=== PATIENT | male | born 2000 | race African-American/Black ===

== ENCOUNTER 2022-07-09 12:52 | Emergency (ER) | payer SELFPAY ==
[~2022-07-09] VITALS: Ht 182.9 cm; Wt 114.8 kg
[2022-07-09] MEDS ORDERED: FAMOTIDINE 20 MG/2 ML VIAL IV STA (13:10)
[2022-07-09] MEDS ORDERED: ONDANSETRON HCL INJ 2MG/ML 2ML 2 MG/ML VIAL IV STA (13:10)
[2022-07-09] MEDS ORDERED: SODIUM CHLORIDE 0.9% 1000ML 1,000 ML IV SCH (13:15)
[2022-07-09] MEDS ORDERED: FAMOTIDINE 20 MG/2 ML VIAL IV ONE (13:29)
[2022-07-09] MEDS ORDERED: ONDANSETRON ODT4 MG PO (14:04)
[2022-07-09] MEDS ORDERED: PEPCID20 MG PO (14:04)
== END 2022-07-09 14:25 | disposition home or self-care (01) ==
LOC: FSED 12:57
DX: R10.13 Epigastric pain (principal); R11.2 Nausea with vomiting, unspecified; R19.7 Diarrhea, unspecified
CPT/HCPCS: 80053; 81003; 85025; 96374; 96376; 99283; J2405